=== PATIENT | male | born 1975 | race Caucasian/White ===

== ENCOUNTER 2020-07-30 09:45 | Emergency (ER) | payer OTHER ==
[~2020-07-30 09:45] MED LIST: FERROUS SULFAT325 M2 PO; PROTONIX40 MG PO
[2020-07-30 11:33] LABS: HEMOGLOBIN 7.3 gm/dl (14.0-17.5); RED BLOOD COUNT 4.61 M/UL (4.20-5.50); WHITE BLOOD COUNT 6.3 K/UL (4.5-11.0)
[2020-07-30 11:57] LABS: BUN/CREATININE RATIO 16 (0-10)
== END 2020-07-30 13:22 | disposition home or self-care (01) ==
LOC: ER1 09:45
PROVIDERS: Emergency Medicine
DX: D64.9 Anemia, unspecified (principal); R88.8 Abnormal findings in other body fluids and substances
CPT/HCPCS: 80053; 83605; 83690; 85025; 86850; 86870; 86900; 86901; 99284

== ENCOUNTER 2020-08-14 18:02 | Inpatient (IN) | payer OTHER ==
[~2020-08-14] VITALS: Ht 193 cm; Wt 111.6 kg
[2020-08-14 18:57] LABS: RED BLOOD COUNT 3.92 M/UL (4.20-5.50); WHITE BLOOD COUNT 6.4 K/UL (4.5-11.0)
[2020-08-14 19:23] LABS: HEMOGLOBIN 6.2 gm/dl (14.0-17.5)
[2020-08-14 19:27] LABS: BUN/CREATININE RATIO 14 (0-10)
[2020-08-14] MEDS ORDERED: METAMUCIL POW1040 GM PO (22:07)
[2020-08-15 10:00] LABS: RED BLOOD COUNT 4.1 M/UL (4.20-5.50); WHITE BLOOD COUNT 4.9 K/UL (4.5-11.0)
[2020-08-15 10:18] LABS: BUN/CREATININE RATIO 16 (0-10)
[2020-08-15 23:46] LABS: HEMOGLOBIN 7.8 gm/dl (14.0-17.5)
[2020-08-16 06:33] LABS: RED BLOOD COUNT 4.51 M/UL (4.20-5.50); WHITE BLOOD COUNT 5.1 K/UL (4.5-11.0)
[2020-08-16 07:05] LABS: BUN/CREATININE RATIO 11 (0-10)
[2020-08-17 06:45] LABS: HEMOGLOBIN 7.5 gm/dl (14.0-17.5); RED BLOOD COUNT 4.27 M/UL (4.20-5.50); WHITE BLOOD COUNT 5.4 K/UL (4.5-11.0)
[2020-08-17 07:20] LABS: BUN/CREATININE RATIO 9 (0-10)
[2020-08-17] MEDS ORDERED: FERROUS GLUCON324 M1 PO (14:32)
[2020-08-17] MEDS ORDERED: PROTONIX IV40 MG PO (14:32)
[2020-08-17] MEDS ORDERED: PERCOCET 10-321 EACH PO (14:46)
[2020-08-17] MEDS ORDERED: PROTONIX 40 MG40 M1 PO (15:15)
== END 2020-08-17 17:16 | disposition home or self-care (01) | DRG 348 ==
LOC: ER1 18:02 → CDU 20:12 → MED SURG 4 20:12
PROVIDERS: Internal Medicine; Physician Assistant; Physician Assistant Medical; Surgery; ADMIT Internal Medicine
PROC: 0DB98ZX Excision of Duodenum, Via Natural or Artificial Opening Endoscopic, Diagnostic (ICD-10-PCS; 2020-08-16)
PROC: 0DJD8ZZ Inspection of Lower Intestinal Tract, Via Natural or Artificial Opening Endoscopic (ICD-10-PCS; 2020-08-16)
PROC: 0DBP8ZZ Excision of Rectum, Via Natural or Artificial Opening Endoscopic (ICD-10-PCS; 2020-08-17)
PROC: 06BY4ZC Excision of Hemorrhoidal Plexus, Percutaneous Endoscopic Approach (ICD-10-PCS; principal; 2020-08-17 11:45)
DX: K64.4 Residual hemorrhoidal skin tags (principal); D62 Acute posthemorrhagic anemia; K64.8 Other hemorrhoids; D50.9 Iron deficiency anemia, unspecified; K29.80 Duodenitis without bleeding; Z83.3 Family history of diabetes mellitus
CPT/HCPCS: 36415; 36430; 80048; 80053; 82272; 82728; 83540; 83550; 83690; 83735; 85014; 85018; 85025; 85027; 85610; 85730; 86850; 86870; 86900; 86901; 86920; 86922; 96374; 96376; 99284; C9113; G0378; J0690; J1100; J1885; J2001; J2250; J2405; J2704; J3010; J7120; P9016; U0002